=== PATIENT | female | born 1965 | race Two or more races ===

== ENCOUNTER → 2018-08-27 15:17 | Outpatient (CLI) | payer OTHER, SELFPAY ==
[2018-09-01 09:59] LABS: HPV APTIMA, High Risk Negative (Negative)
== END ==
PROVIDERS: Referring Provider Obstetrics & Gynecology; Visit Provider Obstetrics & Gynecology
DX: Z12.4 Encounter for screening for malignant neoplasm of cervix (principal)
CPT/HCPCS: 88175; G0145